=== PATIENT | female | born 1985 ===

== ENCOUNTER 2020-08-22 15:51 | Outpatient (REF) | payer OTHER, SELFPAY | END 2020-08-22 15:52 | disposition home or self-care (01) | LOC: HO.LAB 15:51 | PROVIDERS: Visit Provider Internal Medicine | DX: Z20.822 Contact with and (suspected) exposure to COVID-19 (principal) | CPT/HCPCS: 36415; C9803; U0003 ==

== ENCOUNTER 2020-12-21 07:58 | Outpatient (REF) | payer OTHER, SELFPAY ==
[2020-12-21 11:09] LABS: TSH reflex Free T4 1.13 uIU/mL (0.32-4.0)
[2020-12-26 02:36] LABS: HPV mRNA E6/E7 rflx Not Detected (Not Detected)
== END 2020-12-21 07:59 | disposition home or self-care (01) ==
LOC: HO.LAB 07:58
PROVIDERS: PCP Internal Medicine; Visit Provider Obstetrics & Gynecology
DX: Z01.411 Encounter for gynecological examination (general) (routine) with abnormal findings (principal); Z11.51 Encounter for screening for human papillomavirus (HPV); N93.9 Abnormal uterine and vaginal bleeding, unspecified
CPT/HCPCS: 36415; 84443; 87624; 88142

== ENCOUNTER 2021-01-07 12:50 | Outpatient (REF) | payer OTHER, SELFPAY ==
--- NOTE | ~2021-01-07 | US_ITS ---
EXAMINATION: PELVIC ULTRASOUND CLINICAL INFORMATION: Abnormal bleeding COMPARISON: None TECHNIQUE: Transabdominal and transvaginal pelvic ultrasound was performed. Transvaginal exam was performed for better visualization of the uterus and ovaries. FINDINGS: The uterus is anteverted and measures 8.8 x 3.5 x 3.8 cm in dimension. No focal uterine lesion is seen. Endometrial thickness is normal measuring 0.8 cm. There are nabothian cysts in the cervix. The ovaries are normal-appearing. The right ovary measures 2.4 x 1.6 x 1.4 cm. The left ovary measures 2.2 x 1.6 x 1.4 cm. There is trace fluid in the pelvis. US/US pelvic and transvaginal IMPRESSION: Unremarkable exam.
== END 2021-01-07 12:51 | disposition home or self-care (01) ==
LOC: HO.US 12:50
PROVIDERS: PCP Internal Medicine; Visit Provider Obstetrics & Gynecology
DX: N93.9 Abnormal uterine and vaginal bleeding, unspecified (principal)
CPT/HCPCS: 76830; 76856

== ENCOUNTER → 2021-01-09 10:41 | Outpatient (BNVA) | payer OTHER, SELFPAY | PROVIDERS: PCP Internal Medicine; Visit Provider Obstetrics & Gynecology ==

== ENCOUNTER 2021-12-23 10:14 | Outpatient (REF) | payer OTHER, SELFPAY ==
[2021-12-23 16:21] LABS: CT PCR NOT DETECTED (Not Detect.); NG PCR NOT DETECTED (Not Detect.)
[2021-12-24 10:54] LABS: BV Int Neg Control Negative (Negative); BV Int Pos Control Positive (Positive)
== END 2021-12-23 10:15 | disposition home or self-care (01) ==
LOC: HO.LAB 10:14
PROVIDERS: PCP Internal Medicine; Visit Provider Advanced Practice Midwife
DX: Z01.411 Encounter for gynecological examination (general) (routine) with abnormal findings (principal); N93.0 Postcoital and contact bleeding; Z20.2 Contact with and (suspected) exposure to infections with a predominantly sexual mode of transmission
CPT/HCPCS: 87480; 87491; 87510; 87591; 87660

== ENCOUNTER → 2022-01-07 11:08 | Outpatient (BNVA) | payer OTHER, SELFPAY | PROVIDERS: PCP Internal Medicine; Visit Provider Obstetrics & Gynecology | DX: Z30.09 Encounter for other general counseling and advice on contraception (principal) ==

== ENCOUNTER 2022-01-24 07:26 | Day surgery (SDC) | payer OTHER, SELFPAY ==
[2022-01-15 20:07] VITALS: BMI 38.7
--- NOTE | 2022-01-22 14:09 | HO.ANESPROP2 ---
Documented by User: Emi Dumas NP 01/22/22 14:09 HPI - Anesthesia Eval Consult details Narrative: 36yo F for Tubal Ligation Laparoscopic using bipolar cautery,poss bilateral salpingectomy PMFSH Active Problems Active Problems: All Active Problems (Updated 01/07/22 @ 11:33 by Gavin Hernadez MD) Sterilization (Acute) Past Medical History Medical History Obesity (BMI 35.0-39.9 without comorbidity) Family History Family History Father Heart attack Surgical History Surgical History (Updated 01/24/22 @ 07:53 by Nena Hall, RN) Hx of wisdom tooth extraction No pertinent past surgical history Social History Social History Alcohol intake: current Alcohol intake frequency: a few times a month Patient Tobacco Use Status: Never used Tobacco Use of substances other than those prescribed or required for medical reasons: No Are you DNR?: No Advance Directives: No Advance Directives Information Provided: No Advance Directives on File: No Recently lost weight without trying: No Nutrition Risks: No Nutritional Risk Patient : No Current occupational status: employed 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 Sexual orientation: Straight/Heterosexual Gender identity: Female Meds Allergies Allergy/AdvReac Type Severity Reaction Status Date / Time No Known Allergies Allergy Verified 01/07/22 11:14 Exam Exam Date and Time: January 22, 2022 1409 Height,Weight and Vital Signs: Height 5 ft 5 in Weight 105.687 kg Assessment and Plan Assessment Anesthesia Assessment: Chart Reviewed Documented by User: Lupis Coto MD 01/24/22 08:07 [facility] Past Medical History Medical History Obesity (BMI 35.0-39.9 without comorbidity) Family History Family History Father Heart attack Family history of problems with anesthesia: No Surgical History Surgical History (Updated 01/24/22 @ 07:53 by Nena Hall RN) Hx of wisdom tooth extraction No pertinent past surgical history History of Problems with Anesthesia: No Social History Social History Alcohol intake: current Alcohol intake frequency: a few times a month Patient Tobacco Use Status: Never used Tobacco Use of substances other than those prescribed or required for medical reasons: No Are you DNR?: No Advance Directives: No Advance Directives Information Provided: No Advance Directives on File: No Recently lost weight without trying: No Nutrition Risks: No Nutritional Risk Patient : No Current occupational status: employed 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 Sexual orientation: Straight/Heterosexual Gender identity: Female Meds Allergies Allergy/AdvReac Type Severity Reaction Status Date / Time No Known Allergies Allergy Verified 01/07/22 11:14 Exam Airway Mallampati Class: II (Missing couple in back nothing loose) TM Dist: >3cm Neck ROM: Full Heart: rrr Lungs: cta Assessment and Plan Assessment Anesthesia Assessment: Anesthesia Plan Discussed and Chart Reviewed Final Anesthetic Review Family History of Problems with Anesthesia: No History of Problems with Anesthesia: No NPO: Yes ASA Class: II Final Preanesthetic Review: No Changes in Pt Med Stat, Meds/Allgs Chart Reviewed and Consent Obtained/Reviewed Patient Risk: Intermediate Procedure Risk: Intermediate Anesthetic Plan Anesthetic Plan: GA Disposition: Standard PACU
[2022-01-24] VITALS (9 sets, daily range): BP systolic 117–154; BP diastolic 45–83; PULSE 75–103; RESP 18–20; TEMP 36.3–36.9; O2SAT 97–100
[2022-01-24 07:55] LABS: UPreg QC Valid YES; Urine Pregnancy NEGATIVE (NEGATIVE)
[2022-01-24] MEDS: Acetaminophen 325 MG TABLET 650 MG PO (08:01)
[2022-01-24] MEDS: Lactated Ringers 1,000 ML 100 ML IVCONT (08:01)
--- NOTE | 2022-01-24 09:27 | MHC.SHP ---
Pre-Procedural Eval Section A Date of Service: 01/24/22 The patient is an INPATIENT: No Changes since office visit: No Cold of Flu in the past 2 weeks, No New Medical Problems, No Changes in Medication and No Patient answered all questions The History & Physical has been completed within 30 days and I have reviewed it.: Yes Section B Chief Complaint: Encounter for sterilization Allergies: Allergies Allergy/AdvReac Type Severity Reaction Status Date / Time No Known Allergies Allergy Verified 01/07/22 11:14 Plan Diagnosis/Plan: Unchanged I have reviewed the history and physical and performed a pertinent physical examination on my patient. No changes have occurred unless specified.
--- NOTE | 2022-01-24 11:20 | PM.OP ---
Brief Operative Note Date of Service: 01/24/22 Pre-op diagnosis: Completed family requesting permanent sterilization Post-op diagnosis: same Procedure: Laparoscopic bliateral salpingectomy Surgeon: Gavin Hernadez MD Anesthesia: GETA Was an Mortgage Servicing Specialist used for this Procedure?: No Estimated blood loss (mL): 0 Pathology: other (Right & left fallopian tubes) Condition: stable Disposition: PACU
--- NOTE | 2022-01-24 11:20 | P.OP_ITS ---
Operative Note Operative Note Date of Service: 01/24/22 Narrative: PREOPERATIVE DIAGNOSIS:?Completed family requesting?permanent sterilization POSTOPERATIVE DIAGNOSIS:?Completed family requesting?permanent sterilization QBL: Minimal Anesthesia: GETA SURGEON:? Gavin Hernadez MD?? Shoe Worker: Complications: None Pathology: Right and left Fallopian tubes? DESCRIPTION OF PROCEDURE:?The patient was taken to the OR where general anesthesia was easily obtained. The patient was then prepped and draped in a sterile fashion and placed in dorsal lithotomy position. A speculum was introduced into the patient?s vagina for cervical visualization. Once the cervix was visualized, a single-toothed tenaculum was applied to the upper lip of the cervix, and a Humi manipulator was introduced into the patient?s cervix. The single tooth tenaculum was then removed and hemostasis was assured?using pressur e. a Claudio catheter?was inserted and clear urine started draining. Gloves were changed to clean ones. Attention was then drawn to the abdomen where a 10 mm longitudinal incision was done intra umbilical and carried down all the way to the fascia, which was tented?up using 2 Jessica clamps and was nicked in the midline and then extended on both end of the incision?, them using 2 pick?ups the peritoneum?was entered with Metzenbaum scissors and under direct visualization, a 10 mm Andrea trocar was introduced into the patient?s abdomen. Once intraperitoneal placement was confirmed with direct visualization, pneumoperitoneum was started & was easily obtained.Then, two fingerbreadths above the pubic symphysis and towards the?right lower quadrant, under direct visualization, a 5 mm trocar was then introduced into the patient?s abdomen. and a 3rd one on the left?lower quadrant was placed?in a similar manner. The patient was placed in Trendelenburg position, Inspection revealed normal pelvic str uctures & bilateral ovaries and fallopian tubes. Attention was then drawn to the left fallopian tube. The IP ligament was identified and fallopian tube was then grasped by the fimbria and incised from the mesosalpinx using ligasure device, using cautery for hemostasis and cutting afterwards a bite at a time all the way to the cornual end of the left tube. The same was done?on the?right fallopian t ube. Good hemostasis was noted from both fallopian tube sites and the operative site. Specimen were then removed from the patient?s abdomen. Copious irrigation was done. Once good hemostasis was noted from the patient?s abdomen, pneumoperitoneum was deflated and all trocars were removed. Infraumbilical fascia was closed with 0 Vicryl and interrupted suture. The skin was closed with 4-0 Vicryl. The Right and left?lower quadrant ports were closed with 0 Vicryl. Bupivicaine 0.25 10 cc were injected subcuticularly in the 3 incisions. Then speculum was put back in the vagina inspection revealed?hemostasis at the site of the tenaculum, the?humi manipulator was removed? and Claudio was draining clear urine was taken out too. Sponge, lap and needle counts were correct x2. The patient was taken to the recovery room in stable condition.
[2022-01-24] MEDS: oxyCODONE HCl Immed Release 5 MG TABLET PO (12:07)
== END 2022-01-24 14:25 | disposition home or self-care (01) ==
PROVIDERS: Nurse Practitioner; PCP Internal Medicine; Visit Provider Obstetrics & Gynecology
PROC: (CPT 58670; principal; 2022-01-24 09:40)
DX: Z30.2 Encounter for sterilization (principal); E66.9 Obesity, unspecified; Z68.38 Body mass index [BMI] 38.0-38.9, adult
CPT/HCPCS: 58661; 81025; 88302; J0330; J1100; J2250; J2405; J3010

== ENCOUNTER 2022-10-07 08:52 | Outpatient (REF) | payer OTHER, SELFPAY ==
[2022-10-07 12:27] LABS: Cholesterol 161 mg/dL; Glucose Fasting 101 mg/dL (60-99); HDL Cholesterol 40 mg/dL; LDL Cholesterol Calculated 89 mg/dl; Triglycerides 162 mg/dL
[2022-10-07 12:46] LABS: Vitamin D 25-OH Total 24.7 ng/mL (>30)
== END 2022-10-07 08:53 | disposition home or self-care (01) ==
LOC: HO.HMGCLDS 08:52
PROVIDERS: PCP Internal Medicine; Visit Provider Internal Medicine
DX: Z00.01 Encounter for general adult medical examination with abnormal findings (principal); E66.01 Morbid (severe) obesity due to excess calories; Z13.1 Encounter for screening for diabetes mellitus; Z68.41 Body mass index [BMI] 40.0-44.9, adult
CPT/HCPCS: 36415; 80061; 82306; 82947

== ENCOUNTER → 2022-12-25 09:19 | Outpatient (BNVA) | payer OTHER, SELFPAY | PROVIDERS: PCP Internal Medicine; Visit Provider Advanced Practice Midwife ==

== ENCOUNTER 2023-02-02 11:18 | Outpatient (REF) | payer OTHER, SELFPAY | END 2023-02-02 11:19 | disposition home or self-care (01) | LOC: HO.LNP 11:18 | PROVIDERS: PCP Internal Medicine; Visit Provider Advanced Practice Midwife | DX: Z13.89 Encounter for screening for other disorder (principal) ==

== ENCOUNTER 2023-02-02 12:39 | Outpatient (REF) | payer OTHER, SELFPAY | END 2023-02-02 12:40 | disposition home or self-care (01) | LOC: HO.LAB 12:39 | PROVIDERS: PCP Internal Medicine; Visit Provider Advanced Practice Midwife | DX: Z11.4 Encounter for screening for human immunodeficiency virus [HIV] (principal); Z20.2 Contact with and (suspected) exposure to infections with a predominantly sexual mode of transmission | CPT/HCPCS: 0353U; 86780; 86803; 87340; 87389; 87480; 87510; 87660 ==

== ENCOUNTER 2023-07-21 10:05 | Outpatient (AMB) | payer OTHER, SELFPAY ==
[2023-07-21 11:47] VITALS: BP 128/78; PULSE 97; TEMP 36.4; O2SAT 100
--- NOTE | 2023-07-21 11:47 | AM.OFFWIN_ITS ---
Intake Vital Signs 07/21/23 11:47 Height 5 ft 5 in BP 128/78 Blood Pressure Location Lt brachial Position Sitting Pulse 97 Pulse Source Pulse Oximeter Temp 97.6 F Temp Source Temporal Artery Scan Pulse Oximetry (%) 100 Oxygen Delivery Method Room Air Intake Visit Reasons: EST/right ear blockage/sore throat [phone] Intake Note: Pt is here c/o right ear blockage and sore throat. Patient Tobacco Use Status: Never used Tobacco Allergies No Known Allergies Allergy (Verified 07/21/23 11:47) Do you need a note to return to daycare/school/sports/work: Yes HPI HPI Comments History of Present Illness Details This is a 38 year old female with no stated past medical history presenting for evaluation of a blockage in her right ear that has been present over the past 1 week that she describes as an occasional a pressure-like sensation as well as a sore throat which started this morning. Patient denies having any fevers, chills, cough or difficulty hearing. She has not taken any medication for treatment of her symptoms. 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 Sexual orientation: Straight/Heterosexual Gender identity: Female Cognitive needs: No Hearing needs: No Vision needs: Yes Female Reproductive History Menstrual Age of Menarche: 25 Review of Systems Const All systems reviewed & are unremarkable except as noted in HPI and below Denies chills and Denies fever(s) ENT Reports as per HPI, Denies sinus pain, Denies sinus pressure and Reports sore throat Card Reports no additional complaints Resp Reports no additional complaints Endo Reports no additional complaints Physical Exam Vital Signs: Last Vital Signs Temp 97.6 F 07/21/23 11:47 Pulse 97 07/21/23 11:47 BP 128/78 07/21/23 11:47 Pulse Ox 100 07/21/23 11:47 Oxygen Delivery Method Room Air 07/21/23 11:47 Const General: cooperative, healthy appearing, comfortable and no acute distress Nutritional Appearance: well nourished Orientation/consciousness: patient oriented x3 Limitations: no limitations HEENT Head: Yes normal to inspection Ears: hearing grossly normal bilaterally, external ears normal and TM's abnormal bilaterally (bulging bilaterally without erythema; no fluid level bilaterally, no FB) General nose exam: Normal external nose present Face and sinus: Yes normal facial exam and Yes sinuses nontender Mouth: Normal oral and palatal mucosa present Teeth and gingiva: dentition normal Throat: Yes postnasal drainage Eyes General: appearance normal, both eyes and all related structures Alignment and Position: alignment normal Eyelids: Yes eyelids normal Conjunctivae: conjunctivae normal Sclerae: sclerae normal Corneas: corneas normal Pupils: Equal, round and reactive pupils present EOM: EOMs intact bilaterally Neck Lymphatic: no lymphadenopathy noted Skin General skin exam: no rashes or lesions noted Neuro General: patient oriented x3 Cranial nerves: Yes Equal, round and reactive pupils present Psych Appearance: grossly normal Mental Status: mental status grossly normal Insight: Good insight present (Psych) Judgement: Good judgement present (Psych) Assessment & Plan Assessment & Plan (1) Pharyngitis: Code(s): J02.9 - Acute pharyngitis, unspecified Plan: Diphenhydramine 25mg qHS for post.nasal drip and Ibuprofen as needed for pharyngitis. (2) Pressure-related ear pain: Code(s): T70.0XXA - Otitic barotrauma, initial encounter Plan: Fluticasone 1 spray into each nostril daily for 10-14 days. Rx. sent to pharmacy. Medications: New fluticasone propionate 50 mcg/actuation administer into each nostril 1 spray intranasal DAILY 16 grams 1RF Coding Level of Care Code Est Pt Level 3 (27310) Diagnoses Pharyngitis J02.9 Pressure-related ear pain T70.0XXA Time Spent (min) 20
== END 2023-07-21 12:42 | disposition home or self-care (01) ==
PROVIDERS: PCP Internal Medicine; Visit Provider Physician Assistant
DX: J02.9 Acute pharyngitis, unspecified (principal); T70.0XXA Otitic barotrauma, initial encounter
CPT/HCPCS: 99213

== ENCOUNTER 2023-10-19 08:01 | Outpatient (AMB) | payer OTHER, SELFPAY ==
[2023-10-19 08:05] VITALS: BP 120/80; PULSE 92; O2SAT 98; BMI 40.4
--- NOTE | 2023-10-19 08:05 | A.OFFPC_ITS ---
Vital Signs 10/19/23 08:05 Height 5 ft 5 in Weight 243 lb BMI 40.4 BP 120/80 Blood Pressure Location Rt brachial Position Sitting Pulse 92 Pulse Source Pulse Oximeter Pulse Oximetry (%) 98 Oxygen Delivery Method Room Air Intake Visit Reasons: Annual PE Intake Note: Pt is here today for her PE: Last 12/21/20 Is last menstrual period known: Yes Last menstrual period: 09/06/23 Allergies No Known Allergies Allergy (Verified 10/19/23 08:17) Medication List - Last Reconciled 10/19/23 by Steph Zapata MD fluticasone propionate 50 mcg/actuation 1 spray intranasal DAILY multivitamin 1 tab PO DAILY Tobacco use date assessed: 10/19/23 Dental Screening Dental Screen Date: 10/19/23 Did you have a dental visit in the last 12 months?: Yes Did you have a dental problem in the last 6 months where you did not have access to dental care?: No Was dental information given to patient?: Patient has dentist HPI Annual PE HPI Details 38-year-old lady here today for her phys ical exam. She is up-to-date with her cervical cancer screening, last done by Dr. Hernadez in 2020 with negative findings had bilateral salpingectomy for control. She has allergic rhinitis currently uses fluticasone nasal spray as needed. Has been having intermittent episodes of pressure in her right ear accompanied by nasal congestion, unrelieved by taking Zyrtec or Claritin or using Flonase denies any accompanying headache, no sore throat or postnasal drip. She goes to [facility] eye care for her routine eye exam and is up-to-date with all her vaccinations [facility] Medical History (Updated 10/19/23 @ 08:21 by Steph Zapata MD) Morbid obesity with BMI of 40.0-44.9, adult Surgical History (Updated 10/19/23 @ 08:21 by Steph Zapata MD) H/O bilateral salpingectomy Hx of tubal ligation Hx of wisdom tooth extraction Family History Father Acute myocardial infarction, Onset Age: 45 HTN (hypertension) Social History Housing: House Alcohol intake: current Alcohol intake frequency: a few times a month Patient Tobacco Use Status: Never used Tobacco e-Cigarette/Vaping Use: Never Used Current occupational status: employed 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 1. Little interest or pleasure in doing things: not at all 2. Feeling down, depressed, or hopeless: not at all 3. Trouble falling or staying asleep, or sleeping too much: not at all 4. Feeling tired or having little energy: not at all 5. Poor appetite or overeating: not at all 6. Feeling bad about yourself - or that you are a failure or have let yourself or your family down: not at all 7. Trouble concentrating on things, such as reading the newspaper or watching television: not at all 8. Moving or speaking so slowly that other people could have noticed. Or the opposite - being so fidgety or restless that you have been moving around a lot more than usual: not at all 9. Thoughts that you would be better off or of hurting yourself in some way: not at all Total score: 0 Depression Screening Interpretation: Negative Depression Screening Done: Yes 10287 - PHQ-9 Billing: Yes Source: Developed by Drs. Artem Dominguez, Kaley Peter, Zander Morgan and colleagues, with an educational kindra from [employer]. Thrive Questionnaire Date Thrive assessed: 10/19/23 I am a: Patient What is your living situation today?: I have a steady place to live Within the past 12 months, did the food you bought not last and you didn't have the money to get more?: Never true Within the past 12 months, did you worry whether your food would run out before you got money to buy more?: Never true Do you have trouble paying for medicines?: No Do you have trouble getting transportation to medical appointments?: No Do you have trouble paying your heating and electricity bill?: No Do you have trouble taking care of your child, family member or friend?: No Do you have trouble with day-to-day activities such as bathing, preparing meals, shopping, managing finances, etc.?: No Are you currently unemployed and looking for a job?: No Are you interested in more education?: No THRIVE Score: 0 AUDIT C Alcohol Use Questionnaire (AUDIT-C) 1. How often do you have a drink containing alcohol?: Monthly or less 2. How many drinks containing alcohol do you have on a typical day when you are drinking?: 3 or 4 3. How often do you have six or more drinks on one occasion?: Never Total Score: 2 Score Reviewed/Action Taken: Yes KHRIS-7 AMB Questionnaire KHRIS-7 Date KHRIS - 7 assessed: 10/19/23 Feeling nervous, anxious, or on edge: 0 = Not at all Not being able to stop or control worryin = Not at all Worrying too much about different things: 1 = Several days Trouble relaxin = Not at all Being so restless that it is hard to sit still: 0 = Not at all Becoming easily annoyed or irritable: 0 = Not at all Feeling afraid as if something awful might happen: 0 = Not at all Total KHRIS-7 score (0-4 normal; 5-9 mild; 10-14 moderate; 15-21 severe): 1 Source: Developed by Drs. Artem Dominguez, Kaley Peter, Zander Morgan and colleagues, with an educational kindra from [employer]. KHRIS-7 Assessment Billing KHRIS-7 Assessment Tool: KHRIS-7 Assessment 82459 Review of Systems Const Denies body aches, Denies fatigue, Denies fever(s), Denies headache(s) and Denies weakness Eyes Details: goes to [facility] eye care- has myopia Denies change in vision ENT Reports as per HPI, Denies dizziness, Denies otalgia, Denies headache(s), Denies nasal discharge and Denies sore throat Card Denies chest pain, Denies lightheadedness, Denies palpitations and Denies dyspnea Resp Denies chest congestion, Denies cough, Denies dyspnea and Denies wheezing GI Denies abdominal pain, Denies change in bowel habits and Denies heartburn Denies hematuria, Denies urinary frequency, Denies dysuria and Denies urinary urgency Musc Reports no additional complaints Skin/Breast Denies breast pain, Denies breast mass, Denies lesions and Denies rash Neuro Denies dizziness, Denies headache(s) and Denies weakness Psych Reports no additional complaints Endo Denies fatigue, Denies polydipsia, Denies polyuria and Denies palpitations Ruslan/Lymph Denies easy bleeding and Denies easy bruising Aller/Immun Reports seasonal rhinorrhea and Denies wheezing Physical exam (Primary Care) Vital Signs: Last Vital Signs Pulse 92 10/19/23 08:05 BP 120/80 10/19/23 08:05 Pulse Ox 98 10/19/23 08:05 Oxygen Delivery Method Room Air 10/19/23 08:05 BMI result Body Mass Index 40.4 BMI Assessment/Plan discussion: High BMI High, discussed plan: lifestyle, weight reduction, dietary and physical activity Tobacco/Smoking Status: Tobacco use Status Tobacco use date assessed 10/19/23 10/19/23 08:15 Patient Tobacco Use Status Never used Tobacco 10/19/23 08:07 e-Cigarette/Vaping Use Never Used 10/19/23 08:07 Depression Screening Interpretation: Negative Thrive Assessment: Date of Thrive Assessment Date Thrive assessed 10/07/22 10/19/23 08:07 Const General: comfortable, no acute distress and alert Nutritional Appearance: obese morbidly obese Orientation/consciousness: patient oriented x3 HENMT Head: Yes normocephalic and Yes atraumatic Ears: hearing grossly normal bilaterally, external ears normal, TM's normal bilaterally and EAC's normal General nose exam: Normal external nose present and No nasal discharge present Face and sinus: Yes face symmetric and No sinus tenderness Mouth: Normal oral and palatal mucosa present, oropharynx normal and moist mucous membranes Eyes General: appearance normal, both eyes and all related structures Conjunctivae: conjunctivae normal Sclerae: sclerae normal Pupils: Equal, round and reactive pupils present EOM: EOMs intact bilaterally Neck Neck: Yes full ROM, Yes no lymphadenopathy and Yes supple Thyroid: Thyroid normal Chest Chest palpation & inspection: normal inspection of the chest and normal palpation of entire chest wall Breast/axilla inspection: normal inspection of the breasts Breast/axilla palpation: normal palpation of the breasts Resp Effort & Inspection: normal respiratory effort and able to speak in complete sentences Auscultation: clear to auscultation bilaterally Cardio Rate: regular rate Rhythm: regular rhythm Heart sounds: S1 normal heart sound present and S2 normal heart sound present GI Inspection: Yes obesity Palpation (GI): Soft to palpation, nontender, no guarding and no masses Auscultation: normal bowel sounds General: Yes no CVA tenderness and Yes deferred (Has appointment with her OBGYN in December 2023 for routine pelvic and Pap smear) Back/Spine/Pelvis Back: no CVA tenderness Skin General skin exam: no rashes or lesions noted Rashes: no rashes Hair: normal Nails: normal Neuro General: patient oriented x3, gait normal, tone normal, Normal light touch and pain sensation and no focal motor deficits Cranial nerves: Yes Equal, round and reactive pupils present Cognition (Neuro): normal cognition Motor exam (neuro): 5/5 motor strength present throughout Extrem General: Yes full ROM, Yes no joint enlargement, Yes no clubbing, cyanosis or edema, Yes no calf tenderness and Yes normal gait Psych Appearance: grossly normal and well kempt Mental Status: mental status grossly normal Speech and movement: Normal speech and movement present Affect: normal affect Attitude: cooperative Thought process: Normal thought process present Thought content: Normal thought content present Assessment and Plan Assessment & Plan (1) Annual visit for general adult medical examination with abnormal findings: Code(s): Z00.01 - Encounter for general adult medical examination with abnormal findings Plan: Will check appropriate labs. Continue ready dental visit every 6 months and regular eye exams, at least every 2 years, sees [facility]. Take adequate calcium in diet and vitamin-D 3 at 2000 IU per cap once a day, in addition to weight-bearing exercises to help maintain good muscle tone and weight control. Instructed to do self-breast exam, and recommended to get yearly mammogram, starting at age 40. She sees [facility] for her routine Pap and pelvic exam, has an appointment already scheduled for December 2023 up-to-date with all her vaccinations (2) History of vitamin D deficiency: Code(s): Z86.39 - Personal history of other endocrine, nutritional and metabolic disease Plan: Will check vitamin-D (3) Morbid obesity with BMI of 40.0-44.9, adult: Code(s): E66.01 - Morbid (severe) obesity due to excess calories; Z68.41 - Body mass index [BMI] 40.0-44.9, adult Plan: Recommended focusing on improving your health instead of dieting. : Eat Mediterranean diet, limit foods high in fat, sugar, and calories, eat slowly, pay attention to portion sizes, plan your meals ahead of time, start regular physical activity 150 minutes of moderate intensity exercise or 90 minutes/week of vigorous exercise , stay well-hydrated, she also does yoga Orders: Orders Glucose Fasting Today E66.01 - Morbid (severe) obesity due to excess calories, Z00.01 - Encounter for general adult medical examination with abnormal findings, Z13.1 - Encounter for screening for diabetes mellitus, Z13.220 - Encounter for screening for lipoid disorders, Z68.41 - Body mass index [BMI] 40.0-44.9, adult, Z86.39 - Personal history of other endocrine, nutritional and metabolic disease Hemoglobin and Hematocrit Today E66.01 - Morbid (severe) obesity due to excess calories, Z00.01 - Encounter for general adult medical examination with abnormal findings, Z13.1 - Encounter for screening for diabetes mellitus, Z13.220 - Encounter for screening for lipoid disorders, Z68.41 - Body mass index [BMI] 40.0-44.9, adult, Z86.39 - Personal history of other endocrine, nutritional and metabolic disease Lipid Panel Today E66.01 - Morbid (severe) obesity due to excess calories, Z00.01 - Encounter for general adult medical examination with abnormal findings, Z13.1 - Encounter for screening for diabetes mellitus, Z13.220 - Encounter for screening for lipoid disorders, Z68.41 - Body mass index [BMI] 40.0-44.9, adult, Z86.39 - Personal history of other endocrine, nutritional and metabolic disease Vitamin D 25-OH Total Today E66.01 - Morbid (severe) obesity due to excess calories, Z00.01 - Encounter for general adult medical examination with abnormal findings, Z13.1 - Encounter for screening for diabetes mellitus, Z13.220 - Encounter for screening for lipoid disorders, Z68.41 - Body mass index [BMI] 40.0-44.9, adult, Z86.39 - Personal history of other endocrine, nutritional and metabolic disease Coding Level of Care Code Est Pt Prev Care 18-39y(05330) Diagnoses Annual visit for general adult medical examination with abnormal findings Z00.01 History of vitamin D deficiency Z86.39 Morbid obesity with BMI of 40.0-44.9, adult E66.01; Z68.41 Additional Codes KHRIS-7 Assessment Billing - KHRIS-7 Assessment Tool: KHRIS-7 Assessment [id number] ([id number])
== END 2023-10-19 08:36 | disposition home or self-care (01) ==
PROVIDERS: Visit Provider Internal Medicine
DX: Z00.01 Encounter for general adult medical examination with abnormal findings (principal); Z86.39 Personal history of other endocrine, nutritional and metabolic disease; E66.01 Morbid (severe) obesity due to excess calories; Z68.41 Body mass index [BMI] 40.0-44.9, adult
CPT/HCPCS: 99395

== ENCOUNTER 2023-10-19 08:37 | Outpatient (REF) | payer OTHER, SELFPAY ==
[2023-10-19 11:25] LABS: Hematocrit 39.7 % (37.0-47.0); Hemoglobin 12.8 g/dl (12.0-16.0)
[2023-10-19 11:46] LABS: Cholesterol 155 mg/dL (<200); Glucose Fasting 93 mg/dL (60-99); HDL Cholesterol 39 mg/dL (>40); LDL Cholesterol Calculated 76 mg/dL (<100); Triglycerides 202 mg/dL (<150)
[2023-10-19 12:04] LABS: Vitamin D 25-OH Total 60.4 ng/mL (>30)
== END 2023-10-19 08:38 | disposition home or self-care (01) ==
LOC: HO.HMGCLDS 08:37
PROVIDERS: PCP Internal Medicine; Visit Provider Internal Medicine
DX: Z00.01 Encounter for general adult medical examination with abnormal findings (principal); Z13.220 Encounter for screening for lipoid disorders; Z13.1 Encounter for screening for diabetes mellitus; E66.01 Morbid (severe) obesity due to excess calories; Z68.41 Body mass index [BMI] 40.0-44.9, adult; Z86.39 Personal history of other endocrine, nutritional and metabolic disease
CPT/HCPCS: 36415; 80061; 82306; 82947; 85014; 85018

== ENCOUNTER 2023-12-29 08:20 | Outpatient (REF) | payer OTHER, SELFPAY ==
[2023-12-30 04:46] LABS: CT PCR NOT DETECTED (Not Detect.); NG PCR NOT DETECTED (Not Detect.)
[2023-12-30 11:09] LABS: Bacterial Vaginosis PCR NEGATIVE (Negative); Candida Group PCR NOT DETECTED (Not Detect); Candida glab krusei PCR NOT DETECTED (Not Detect); Trichomonas vaginalis PCR NOT DETECTED (Not Detect)
[2024-01-07 07:59] LABS: HPV mRNA E6/E7 rflx Not Detected (Not Detected)
== END 2023-12-29 08:21 | disposition home or self-care (01) ==
LOC: HO.LAB 08:20
PROVIDERS: Visit Provider Advanced Practice Midwife
DX: Z01.419 Encounter for gynecological examination (general) (routine) without abnormal findings (principal); Z11.51 Encounter for screening for human papillomavirus (HPV); Z20.2 Contact with and (suspected) exposure to infections with a predominantly sexual mode of transmission
CPT/HCPCS: 0352U; 0353U; 87624; 88142

== ENCOUNTER 2023-12-29 08:20 | Outpatient (AMB) | payer OTHER, SELFPAY ==
[2023-12-29 08:39] VITALS: BP 130/70; BMI 39.9
--- NOTE | 2023-12-29 08:39 | A.OFFVIS_ITS ---
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 Doing well with no concerns: Menses crampy in heavy. Regular monthly menses, heavy menstrual bleeding 4 out of 7 days. She reports always having menstrual periods that were heavy, now crampy year since her tubal ligation and being off OCPs. Currently is sexually active. She denies vaginal itching and irritation. STI screening offered; she accepts. She tries to eat healthy and stays active with exercise. Denies family history of breast or ovarian. Family history of colon cancer- mother. Last pap smear 2020, negative. CBC 12.8- 10/19/2023. [facility] Medical History (Updated 12/29/23 @ 09:18 by Letha Maldonado CNM) Heavy menses Morbid obesity with BMI of 40.0-44.9, adult Surgical History H/O bilateral salpingectomy Hx of tubal ligation Hx of wisdom tooth extraction Family History (Updated 12/29/23 @ 09:17 by Eliseo Colon CMA) Father Acute myocardial infarction, Onset Age: 45 HTN (hypertension) Mother Colon cancer Social History Housing: House Alcohol intake: current Alcohol intake frequency: a few times a month Patient Tobacco Use Status: Never used Tobacco e-Cigarette/Vaping Use: Never Used Current occupational status: employed 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 Sexual orientation: Straight/Heterosexual Gender identity: Female Cognitive needs: No Hearing needs: No Vision needs: Yes Female Reproductive History Menstrual Age of Menarche: 15 Duration of menses: 6-7 days Date of last menstrual period: 12/17/23 control method: permanent sterilization Total pregnancies: 2 Full term: 1 Date of last pap smear: 12/24/20 (negative,2017 wnl) Review of Systems Const All systems reviewed & are unremarkable except as noted in HPI and below Reports as per HPI Eyes Reports no additional complaints ENT Reports no additional complaints Card Reports no additional complaints Resp Reports no additional complaints GI Reports as per HPI and Reports no additional complaints Reports as per HPI Musc Reports no additional complaints Skin/Breast Reports as per HPI Neuro Reports no additional complaints Psych Reports no additional complaints Endo Reports no additional complaints Ruslan/Lymph Reports no additional complaints Aller/Immun Reports no additional complaints Physical Exam Vital Signs: Last Vital Signs BP 130/70 12/29/23 08:39 BMI result Body Mass Index 39.9 Const General: cooperative, healthy appearing, no acute distress, well developed and alert Orientation/consciousness: patient oriented x3 HEENT Head: Yes normal to inspection Eyes General: appearance normal, both eyes and all related structures Neck Neck: Yes normal visual inspection Thyroid: Thyroid normal Chest Chest palpation & inspection: normal inspection of the chest and other (no puckering, dimpling, peau de orange, retraction, discharge, masses) Breast/axilla inspection: normal inspection of the breasts Breast/axilla palpation: normal palpation of the breasts Resp Effort & Inspection: normal respiratory effort GI Inspection: Yes normal to inspection Palpation (GI): Soft to palpation Rectal Exam - Female: deferred General: Yes bladder normal to palpation External Female Exam: normal external appearance and normal appearance of the urethra Speculum Exam - Vagina: normal appearance of the vagina, normal palpation and normal vaginal discharge Speculum Exam - Cervix: normal appearance of the cervix, normal palpation and Other cervical findings present (Bled with Pap) Bimanual exam- vagina & uterus: normal bimanual exam, normal palpation, uterine size normal, bladder normal to palpation, normal palpation and non-tender Bimanual Exam- Adnexa, other: no masses Skin General skin exam: no rashes or lesions noted Rashes: no rashes Neuro General: patient oriented x3 Cognition (Neuro): normal cognition Extrem General: Yes normal to inspection Psych Attitude: cooperative Thought process: Normal thought process present Assessment & Plan Assessment & Plan (1) Encounter for well woman exam with routine gynecological exam: Code(s): Z01.419 - Encounter for gynecological examination (general) (routine) without abnormal findings Category: Medical (2) Heavy menses: Code(s): N92.0 - Excessive and frequent menstruation with regular cycle Category: Medical Qualifiers: Menorrhagia type: with regular cycle Qualified Code(s): N92.0 - Exce ssive and frequent menstruation with regular cycle Plan Discussed: Current recommendations for pap smears per ASCCP guidelines. Breast awareness and periodic breast exams. Maintain a healthy lifestyle including a well balanced diet and routine exercise. Workup for heavy menstrual bleeding including a TSH, ultrasound, possible endometrial biopsy. Consider cycle control in the future. Patient verbalizes understanding and agrees to the plan of care. She was given opportunity to ask questions and all questions were answered to the best of my ability. 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 This note is constructed using voice recognition software. While every effort has been made to ensure accuracy, color drum worker errors may have been included. Orders: Orders US pelvic and transvaginal Today N92.0 - Excessive and frequent menstruation with regular cycle Thyroid Stimulating Hormone Today N92.0 - Excessive and frequent menstruation with regular cycle, N92.1 - Excessive and frequent menstruation with irregular cycle Coding Level of Care Code Est Pt Prev Care 18-39y(16395) Diagnoses Encounter for well woman exam with routine gynecological exam Z01.419 Menorrhagia with regular cycle N92.0 Menorrhagia type: with regular cycle
== END 2023-12-29 09:20 | disposition home or self-care (01) ==
PROVIDERS: Visit Provider Advanced Practice Midwife
DX: Z01.419 Encounter for gynecological examination (general) (routine) without abnormal findings (principal); N92.0 Excessive and frequent menstruation with regular cycle
CPT/HCPCS: 99395

== ENCOUNTER 2024-01-04 14:19 | Outpatient (REF) | payer OTHER, SELFPAY ==
--- NOTE | ~2024-01-04 | US_ITS ---
EXAMINATION: US PELVIS CLINICAL INFORMATION: Excessive and frequent menstruation LMP 12/17/2023 History of bilateral salpingectomy COMPARISON: Pelvic ultrasound 01/07/2021 TECHNIQUE: Ultrasound of the pelvis is performed using both transabdominal and transvaginal transducers along with Doppler. Transvaginal imaging is performed due to inadequate visualization transabdominally. FINDINGS: Uterus: The uterus is anteverted and measures 8.8 x 4.5 x 5.3 cm. No focal fibroid. The endometrial thickness is 0.9 cm The uterus is smooth in contour and has normal myometrial echogenicity. No visible fibroid. Adnexa: Both ovaries are visualized. There is normal color flow to the adnexa. There is no ovarian torsion. There is a small amount of free fluid within the cul-de-sac. Right ovary measures 3.0 x 1.6 x 1.9 cm. Volume 4.7 mL. The right ovary is normal in appearance. Left ovary measures 3.8 x 2.1 x 2.7 cm. Volume 11.3 mL. The left ovary is normal in appearance. US/US pelvic and transvaginal IMPRESSION: Normal uterus and ovaries.
[2024-01-04 17:04] LABS: Thyroid Stimulating Hormone 0.92 uIU/mL (0.32-4.0)
== END 2024-01-04 14:20 | disposition home or self-care (01) ==
LOC: HO.HMGCX 14:19
PROVIDERS: PCP Internal Medicine; Visit Provider Advanced Practice Midwife
DX: N92.0 Excessive and frequent menstruation with regular cycle (principal); N92.1 Excessive and frequent menstruation with irregular cycle
CPT/HCPCS: 36415; 76830; 76856; 84443

== ENCOUNTER 2024-03-02 14:56 | Outpatient (AMB) | payer OTHER, SELFPAY ==
--- NOTE | 2024-03-02 15:29 | A.OFFVIS_ITS ---
Intake Visit Reasons: Us follow up Electrotyper: Electrotyper Present Allergies No Known Allergies Allergy (Verified 03/02/24 15:29) Is last menstrual period known: Yes HPI Comments Details: Patient is here today for a follow up pelvic ultrasound due to history of heavier periods. She reports her cycles are on the heavier side most of her life, they are not prolonged or less than 24 days apart, occuring at regular intervals lasting 5-6 days. She uses srco-ycj-ceqtspz ibuprofen and a heating pad if needed for the 1st 1-2 days of the cycle due to cramping. History of tubal ligation. CBC and TSH are normal ranges. 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 Sexual orientation: Straight/Heterosexual Gender identity: Female Cognitive needs: No Hearing needs: No Vision needs: Yes Female Reproductive History Menstrual Age of Menarche: 15 Review of Systems Const All systems reviewed & are unremarkable except as noted in HPI and below Endo Reports no additional complaints Physical Exam Const General: cooperative, healthy appearing and no acute distress Psych Appearance: well kempt Attitude: cooperative Thought process: Normal thought process present Results Reviewed Results Reviewed: [facility] Adult Primary Care [facility] [place] [place] [address] Ultrasound Report Signed Patient: Adwoa Nelson MR#: [id number] : 1985 Acct:[id number] Age/Sex: 38 / F ADM Date: 01/04/24 Loc: HO.HMGCX Attending Dr: Letha Maldonado CNM Ordering Physician: Letha Maldonado CNM Date of Service: 01/04/24 Procedure(s): US pelvic and transvaginal Accession Number(s): [id number] cc: Steph Zapata MD; Letha Maldonado CNM~ EXAMINATION: US PELVIS CLINICAL INFORMATION: Excessive and frequent menstruation LMP 12/17/2023 History of bilateral salpingectomy COMPARISON: Pelvic ultrasound 01/07/2021 TECHNIQUE: Ultrasound of the pelvis is performed using both transabdominal and transvaginal transducers along with Doppler. Transvaginal imaging is performed due to inadequate visualization transabdominally. FINDINGS: Uterus: The uterus is anteverted and measures 8.8 x 4.5 x 5.3 cm. No focal fibroid. The endometrial thickness is 0.9 cm The uterus is smooth in contour and has normal myometrial echogenicity. No visible fibroid. Adnexa: Both ovaries are visualized. There is normal color flow to the adnexa. There is no ovarian torsion. There is a small amount of free fluid within the cul-de-sac. Right ovary measures 3.0 x 1.6 x 1.9 cm. Volume 4.7 mL. The right ovary is normal in appearance. Left ovary measures 3.8 x 2.1 x 2.7 cm. Volume 11.3 mL. The left ovary is normal in appearance. US/US pelvic and transvaginal IMPRESSION: Normal uterus and ovaries. Dictated By: Kate Jiang MD Signed By: <Electronically signed by Kate Jiang MD in OV> 01/18/24 1557 DD/ [id number] Assessment & Plan Assessment & Plan (1) Heavy menses: Code(s): N92.0 - Excessive and frequent menstruation with regular cycle Category: Medical Qualifiers: Menorrhagia type: with regular cycle Qualified Code(s): N92.0 - Excessive and frequent menstruation with regular cycle (2) Dysmenorrhea: Code(s): N94.6 - Dysmenorrhea, unspecified (3) Encounter to discuss test results: Code(s): Z71.2 - Person consulting for explanation of examination or test findings Plan Discussed: Ultrasound findings-unremarkable. Management dysmenorrhea including the use of fkxj-yhk-hqejzml products. When to call for concerns with heavy bleeding, irregular patterns, any prolonged bleeding episodes. She is not interested in control at this time and would rather like to monitor her cycles for now. Counseled regarding benefits of cycle control for quality of life. She was open to taking a Mirena IUD booklet for review. All of her questions and concerns were addressed to the best of my ability and shared decision making. She is agreeable to the plan of care, and agrees to call the office for sooner evaluation if she has any menstrual cycle concerns. Annual exam as scheduled follow up 2024. Insert voice recognition Coding Level of Care Code Est Pt Level 3 (08188) Diagnoses Menorrhagia with regular cycle N92.0 Menorrhagia type: with regular cycle Dysmenorrhea N94.6 Encounter to discuss test results Z71.2
== END 2024-03-02 16:05 | disposition home or self-care (01) ==
LOC: HO.HWS 14:56
PROVIDERS: PCP Internal Medicine; Visit Provider Advanced Practice Midwife
DX: N92.0 Excessive and frequent menstruation with regular cycle (principal); N94.6 Dysmenorrhea, unspecified; Z71.2 Person consulting for explanation of examination or test findings
CPT/HCPCS: 99213

== ENCOUNTER → 2024-03-02 14:56 | Outpatient (BNVA) | payer OTHER, SELFPAY | PROVIDERS: PCP Internal Medicine; Visit Provider Advanced Practice Midwife ==

== ENCOUNTER 2024-05-20 13:15 | Outpatient (AMB) | payer OTHER, SELFPAY ==
--- NOTE | 2024-05-20 13:23 | A.OFFVIS_ITS ---
Vital Signs 05/20/24 13:25 Height 5 ft 5 in BP 118/70 Intake Visit Reasons: BC consult Acid Tender: Acid Tender Present Allergies No Known Allergies Allergy (Verified 05/20/24 13:23) Is last menstrual period known: Yes Last menstrual period: 05/08/24 HPI Comments Details: Patient is here today for a follow up control. She has history of regular cycles lasting 7 days, with increased cramping without using NuvaRing, takes Adviil (3 tabs) to help with cramping. She stopped using the NuvaRing in December to see what happened with her cycles. She is not interested in the Mirena IUD at this time. History of tubal ligation. She denies any contraindications to control such as: migraines with aura, history of DVT or pulmonary emboli, high blood pressure, liver disease, thrombolic disorders, Lupus, +CONNIE, breast cancer, or smoking. 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 Sexual orientation: Straight/Heterosexual Gender identity: Female Cognitive needs: No Hearing needs: No Vision needs: Yes Female Reproductive History Menstrual Age of Menarche: 15 Duration of menses: 6-7 days Date of last menstrual period: 05/08/24 control method: permanent sterilization Permanent Sterilization: BTL Review of Systems Const All systems reviewed & are unremarkable except as noted in HPI and below Endo Reports no additional complaints Physical Exam Vital Signs: Last Vital Signs BP 118/70 05/20/24 13:25 Const General: cooperative, healthy appearing and no acute distress Psych Appearance: well kempt Attitude: cooperative Thought process: Normal thought process present Assessment & Plan Assessment & Plan (1) Counseling for initiation of control method: Code(s): Z. - Encounter for other general counseling and advice on contraception Plan Discussed: Reviewed NuvaRing use. control hormone use warnings: go to ER if and loss of vision, blindness, severe headache, chest pain or difficulty breathing, severe abdominal pain, or any pain or swelling in an extremity. Annual exam scheduled 01/20/2025. Rx sent in to [facility]. if any concerns. All of her questions and concerns were addressed to the best of my ability and shared decision making. She is agreeable to the plan of care. This note is constructed using voice recognition software. While every effort has been made to ensure accuracy, medical field representative errors may have been included. Medications: New etonogestrel-ethinyl estradiol 0.12-0.015 mg/24 hr (NuvaRing) 1 vag ring vaginal Q4W 3 weeks 1 ea 6RF Coding Level of Care Code Est Pt Level 3 (55907) Diagnoses Counseling for initiation of control method Z30.
[2024-05-20 13:25] VITALS: BP 118/70
== END 2024-05-20 13:45 | disposition home or self-care (01) ==
LOC: HO.HWS 13:15
PROVIDERS: PCP Internal Medicine; Visit Provider Advanced Practice Midwife
DX: Z30.09 Encounter for other general counseling and advice on contraception (principal)
CPT/HCPCS: 99213

== ENCOUNTER → 2024-05-20 13:15 | Outpatient (BNVA) | payer OTHER, SELFPAY | PROVIDERS: PCP Internal Medicine; Visit Provider Advanced Practice Midwife ==

== ENCOUNTER 2024-10-27 08:44 | Outpatient (AMB) | payer OTHER, SELFPAY ==
--- NOTE | 2024-10-27 09:10 | MHC.PC.OV ---
Vital Signs 10/27/24 09:19 Height 5 ft 5 in Weight 244 lb BMI 40.6 BP 136/80 Blood Pressure Location Lt brachial Position Sitting Respiration 15 Pulse 103 H Pulse Source Pulse Oximeter Temp 98.3 F Temp Source Oral Intake Visit Reasons: Annual PE Intake Note: Pt is here today for her PE: Last papsmear 12/30/23 Allergies No Known Allergies Allergy (Verified 10/27/24 09:30) Medication List - Last Reconciled 10/27/24 by Steph Zapata MD etonogestrel-ethinyl estradiol 0.12-0.015 mg/24 hr (NuvaRing) 1 vag ring vaginal Q4W 3 weeks fluticasone propionate 50 mcg/actuation 1 spray intranasal DAILY multivitamin 1 tab PO DAILY Tobacco use date assessed: 10/27/24 Dental Screening Dental Screen Date: 10/27/24 Did you have a dental visit in the last 12 months?: Yes Did you have a dental problem in the last 6 months where you did not have access to dental care?: Yes Was dental information given to patient?: Patient has dentist HPI Annual PE HPI Details 39-year-old lady with history of morbid obesity,p here today for her physical exam. She goes to [facility] for routine Pap and pelvic exam, with last Pap smear done a year ago with normal findings. Patient is currently on a NuvaRing control heavy menstrual bleed. Already had tubal ligation. She has been seeing a therapist to control her anxiety symptoms, which has been helping. 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 1. Little interest or pleasure in doing things: not at all 2. Feeling down, depressed, or hopeless: not at all 3. Trouble falling or staying asleep, or sleeping too much: not at all 4. Feeling tired or having little energy: not at all 5. Poor appetite or overeating: not at all 6. Feeling bad about yourself - or that you are a failure or have let yourself or your family down: not at all 7. Trouble concentrating on things, such as reading the newspaper or watching television: not at all 8. Moving or speaking so slowly that other people could have noticed. Or the opposite - being so fidgety or restless that you have been moving around a lot more than usual: not at all 9. Thoughts that you would be better off or of hurting yourself in some way: not at all Total score: 0 Depression Screening Interpretation: Negative Depression Screening Done: Yes 59154 - PHQ-9 Billing: Yes Source: Developed by Drs. Artem Dominguez, Kaley Peter, Zander Morgan and colleagues, with an educational kindra from [employer]. Thrive Questionnaire Date Thrive assessed: 10/27/24 I am a: Patient What is your living situation today?: I have a steady place to live Within the past 12 months, did the food you bought not last and you didn't have the money to get more?: Never true Within the past 12 months, did you worry whether your food would run out before you got money to buy more?: Never true Do you have trouble paying for medicines?: No Do you have trouble getting transportation to medical appointments?: No Do you have trouble paying your heating and electricity bill?: No Do you have trouble taking care of your child, family member or friend?: No Do you have trouble with day-to-day activities such as bathing, preparing meals, shopping, managing finances, etc.?: No Are you currently unemployed and looking for a job?: No Are you interested in more education?: No Please select the resources that you would like help with: None Currently or been in a relationship where the following occur: No concerns reported THRIVE Score: 0 AUDIT C Alcohol Use Questionnaire (AUDIT-C) 1. How often do you have a drink containing alcohol?: Monthly or less 2. How many drinks containing alcohol do you have on a typical day when you are drinking?: 1 or 2 3. How often do you have six or more drinks on one occasion?: Never Total Score: 1 KHRIS-7 AMB Questionnaire KHRIS-7 Date KHRIS - 7 assessed: 10/27/24 Feeling nervous, anxious, or on edge: 0 = Not at all Not being able to stop or control worryin = Not at all Worrying too much about different things: 0 = Not at all Trouble relaxin = Not at all Being so restless that it is hard to sit still: 0 = Not at all Becoming easily annoyed or irritable: 0 = Not at all Feeling afraid as if something awful might happen: 0 = Not at all Total KHRIS-7 score (0-4 normal; 5-9 mild; 10-14 moderate; 15-21 severe): 0 Source: Developed by Drs. Artem Dominguez, Kaley Peter, Zander Morgan and colleagues, with an educational kindra from [employer]. KHRIS-7 Assessment Billing KHRIS-7 Assessment Tool: KHRIS-7 Assessment 32308 Review of Systems Const Denies body aches, Denies fatigue, Denies fever(s), Denies headache(s) and Denies weakness Eyes Details: goes to [facility] eye care- has myopia Denies change in vision ENT Reports as per HPI, Denies dizziness, Denies otalgia, Denies headache(s), Denies nasal discharge and Denies sore throat Card Denies chest pain, Denies lightheadedness, Denies palpitations and Denies dyspnea Resp Denies chest congestion, Denies cough, Denies dyspnea and Denies wheezing GI Denies abdominal pain, Denies change in bowel habits and Denies heartburn Denies hematuria, Denies urinary frequency, Denies dysuria and Denies urinary urgency Musc Reports no additional complaints Skin/Breast Denies breast pain, Denies breast mass, Denies lesions and Denies rash Neuro Denies dizziness, Denies headache(s) and Denies weakness Psych Reports no additional complaints Endo Denies fatigue, Denies polydipsia, Denies polyuria and Denies palpitations Ruslan/Lymph Denies easy bleeding and Denies easy bruising Aller/Immun Reports seasonal rhinorrhea and Denies wheezing Physical exam (Primary Care) Vital Signs: Last Vital Signs Temp 98.3 F 10/27/24 09:19 Pulse 103 H 10/27/24 09:19 Resp 15 10/27/24 09:19 BP 136/80 10/27/24 09:19 BMI result Body Mass Index 40.6 BMI Assessment/Plan discussion: High BMI High, discussed plan: lifestyle, weight reduction, dietary and physical activity Tobacco/Smoking Status: Tobacco use Status Tobacco use date assessed 10/27/24 10/27/24 09:13 Patient Tobacco Use Status Never used Tobacco 10/27/24 09:11 e-Cigarette/Vaping Use Never Used 10/27/24 09:11 PHQ-9: PHQ-9 Score PHQ-9: Total score 0 10/27/24 09:11 Depression Screening Interpretation: Negative Thrive Assessment: Date of Thrive Assessment Date Thrive assessed 10/27/24 10/27/24 09:13 Currently or been in a relationship where the following occur: No concerns reported Advance Care Planning discussion: Completed/Scanned Date of discussion: 10/27/24 Who was present: Patient Forms completed: Health Care Proxy Time spent: 16-45 minutes Actual minutes spent: 2 Const General: comfortable, no acute distress and alert Nutritional Appearance: obese morbidly obese Orientation/consciousness: patient oriented x3 HENMT Head: Yes normocephalic Ears: external ears normal, TM's normal bilaterally and EAC's normal General nose exam: Normal external nose present Face and sinus: Yes face symmetric Mouth: moist mucous membranes Eyes General: appearance normal, both eyes and all related structures Conjunctivae: conjunctivae normal Sclerae: sclerae normal Pupils: Equal, round and reactive pupils present EOM: EOMs intact bilaterally Neck Neck: Yes full ROM, Yes no lymphadenopathy and Yes supple Thyroid: Thyroid normal Chest Chest palpation & inspection: normal inspection of the chest and normal palpation of entire chest wall Breast/axilla inspection: normal inspection of the breasts Breast/axilla palpation: normal palpation of the breasts Resp Effort & Inspection: normal respiratory effort and able to speak in complete sentences Auscultation: clear to auscultation bilaterally Cardio Rate: regular rate Rhythm: regular rhythm Heart sounds: S1 normal heart sound present and S2 normal heart sound present GI Inspection: Yes obesity Palpation (GI): Soft to palpation, nontender, no guarding and no masses Auscultation: normal bowel sounds General: Yes no CVA tenderness Back/Spine/Pelvis Back: no CVA tenderness Skin General skin exam: no rashes or lesions noted Rashes: no rashes Hair: normal Nails: normal Neuro General: patient oriented x3, gait normal, tone normal, Normal light touch and pain sensation and no focal motor deficits Cranial nerves: Yes Equal, round and reactive pupils present Cognition (Neuro): normal cognition Motor exam (neuro): 5/5 motor strength present throughout Extrem General: Yes full ROM, Yes no joint enlargement, Yes no clubbing, cyanosis or edema, Yes no calf tenderness and Yes normal gait Psych Appearance: grossly normal and well kempt Mental Status: mental status grossly normal Speech and movement: Normal speech and movement present Affect: normal affect Attitude: cooperative Thought process: Normal thought process present Thought content: Normal thought content present Coding Level of Care Code Est Pt Prev Care 18-39y(15166) Diagnoses Annual visit for general adult medical examination with abnormal findings Z00.01 Morbid obesity with BMI of 40.0-44.9, adult E66.01; Z68.41 Advanced directives, counseling/discussion Z71.89 Additional Codes Vital Signs *Quality* - Advance Care Planning discussion: Completed/Scanned ([id number]) Vital Signs *Quality* - Time spent: 16-45 minutes ([id number]) KHRIS-7 Assessment Billing - KHRIS-7 Assessment Tool: KHRIS-7 Assessment 54275 ([id number]) PHQ-9 - 02025 - PHQ-9 Billing: Yes ([id number]) Assessment & Plan Assessment & Plan (1) Annual visit for general adult medical examination with abnormal findings: Code(s): Z00.01 - Encounter for general adult medical examination with abnormal findings Plan: Will check appropriate labs. Continue regular dental visit every 6 months and regular eye exams, at least every 2 years. Take adequate calcium in diet and vitamin-D 3 at 1999 IU per cap once a day, in addition to weight-bearing exercises to help maintain good muscle tone and weight control. Instructed to do self-breast exam, and recommended to get yearly mammogram, starting at age 40. She goes to [facility] for routine Pap and pelvic exam and is prescribed NuvaRing for control and control of her having menses. Up-to-date with all her vaccines, gets yearly flu shots (2) Morbid obesity with BMI of 40.0-44.9, adult: Code(s): E66.01 - Morbid (severe) obesity due to excess calories; Z68.41 - Body mass index [BMI] 40.0-44.9, adult Category: Medical Plan: Patient has started taking up rollerblading again, for exercise. Advised adherence to healthy eating habits, cut back on lot of processed foods and simple carbs like pastries, donuts, eating more Mediterranean diet (3) Advanced directives, counseling/discussion: Code(s): Z71.89 - Other specified counseling Plan: Initiated the conversation about Advanced Directives. Advanced Directives help patients prepare for current and future decisions about their medical treatment and place of care. Discussed with patient that it is a process where a patients current condition and prognosis are reviewed, their wishes for information regarding their illness are elicited, and likely medical dilemmas are presented and options discussed. Healthcare proxy form completed today. The form can be amended as needed, reviewed yearly and make changes as needed Orders: Orders Basic Metabolic Panel Fasting Today E66.01 - Morbid (severe) obesity due to excess calories, N92.0 - Excessive and frequent menstruation with regular cycle, Z00.01 - Encounter for general adult medical examination with abnormal findings, Z13.1 - Encounter for screening for diabetes mellitus, Z13.220 - Encounter for screening for lipoid disorders, Z68.41 - Body mass index [BMI] 40.0-44.9, adult Lipid Panel Today E66.01 - Morbid (severe) obesity due to excess calories, N92.0 - Excessive and frequent menstruation with regular cycle, Z00.01 - Encounter for general adult medical examination with abnormal findings, Z13.1 - Encounter for screening for diabetes mellitus, Z13.220 - Encounter for screening for lipoid disorders, Z68.41 - Body mass index [BMI] 40.0-44.9, adult Vitamin D 25-OH Total Today E66.01 - Morbid (severe) obesity due to excess calories, N92.0 - Excessive and frequent menstruation with regular cycle, Z00.01 - Encounter for general adult medical examination with abnormal findings, Z13.1 - Encounter for screening for diabetes mellitus, Z13.220 - Encounter for screening for lipoid disorders, Z68.41 - Body mass index [BMI] 40.0-44.9, adult Aspartate Amino Transferase Today E66.01 - Morbid (severe) obesity due to excess calories, N92.0 - Excessive and frequent menstruation with regular cycle, Z00.01 - Encounter for general adult medical examination with abnormal findings, Z13.1 - Encounter for screening for diabetes mellitus, Z13.220 - Encounter for screening for lipoid disorders, Z68.41 - Body mass index [BMI] 40.0-44.9, adult Alanine Aminotransferase Today E66.01 - Morbid (severe) obesity due to excess calories, N92.0 - Excessive and frequent menstruation with regular cycle, Z00.01 - Encounter for general adult medical examination with abnormal findings, Z13.1 - Encounter for screening for diabetes mellitus, Z13.220 - Encounter for screening for lipoid disorders, Z68.41 - Body mass index [BMI] 40.0-44.9, adult Complete Blood Count Auto Diff Today E66.01 - Morbid (severe) obesity due to excess calories, N92.0 - Excessive and frequent menstruation with regular cycle, Z00.01 - Encounter for general adult medical examination with abnormal findings, Z13.1 - Encounter for screening for diabetes mellitus, Z13.220 - Encounter for screening for lipoid disorders, Z68.41 - Body mass index [BMI] 40.0-44.9, adult TSH reflex Free T4 Today E66.01 - Morbid (severe) obesity due to excess calories, N92.0 - Excessive and frequent menstruation with regular cycle, Z00.01 - Encounter for general adult medical examination with abnormal findings, Z13.1 - Encounter for screening for diabetes mellitus, Z13.220 - Encounter for screening for lipoid disorders, Z68.41 - Body mass index [BMI] 40.0-44.9, adult
[2024-10-27 09:19] VITALS: BP 136/80; PULSE 103; RESP 15; TEMP 36.8; BMI 40.6
== END 2024-10-27 09:50 | disposition home or self-care (01) ==
LOC: HO.HMCC 08:45
PROVIDERS: PCP Internal Medicine; Visit Provider Internal Medicine
DX: Z00.01 Encounter for general adult medical examination with abnormal findings (principal); E66.01 Morbid (severe) obesity due to excess calories; Z68.41 Body mass index [BMI] 40.0-44.9, adult; Z71.89 Other specified counseling

== ENCOUNTER → 2024-10-27 08:44 | Outpatient (BNVA) | payer OTHER, SELFPAY | PROVIDERS: PCP Internal Medicine; Visit Provider Internal Medicine | DX: Z00.01 Encounter for general adult medical examination with abnormal findings (principal); E66.01 Morbid (severe) obesity due to excess calories; Z68.41 Body mass index [BMI] 40.0-44.9, adult; Z71.89 Other specified counseling | CPT/HCPCS: 96127 ==

== ENCOUNTER 2024-11-04 07:06 | Outpatient (REF) | payer OTHER, SELFPAY ==
--- OUTSIDE RECORDS SUMMARY | 2024-11-04 07:07 | XMS_ITS ---
Author Name [facility] Organization Unknown Care Team Organization Name Specialty Phone Email Start Date End [facility]
[2024-11-04 10:12] LABS: MANUAL DIFF FLAG NO
[2024-11-04 10:17] LABS: Basophils Percent Auto 0.2 % (0-2); Eosinophils Absolute Auto 0.1 X10*3/uL (0.0-0.4); Eosinophils Percent Auto 0.6 % (0-4); Hematocrit 42.4 % (37.0-47.0); Hemoglobin 13.7 g/dl (12.0-16.0); Imm Gran Abs Auto 0.03 X10*3/uL (0.00-0.03); Imm Gran Pct Auto 0.3 % (0.0-0.4); Lymphocytes Absolute Auto 4.6 X10*3/uL (1.2-4.9); Lymphocytes Percent Auto 46.4 % (20-40); Mean Corpuscular HGB Conc 32.3 g/dl (31.0-35.0); Mean Corpuscular Hemoglobin 28.2 pg (27.0-33.0); Mean Corpuscular Volume 87.4 fL (80.0-98.0); Mean Platelet Volume 9.5 fL (9.4-12.3); Monocytes Absolute Auto 0.6 X10*3/uL (0.1-1.2); Monocytes Percent Auto 5.7 % (2-11); Neutrophils Absolute Auto 4.7 x10*3/uL (2.0-8.3); Neutrophils Percent Auto 46.8 % (45-73); Platelet Count 383 X10*3/uL (160-400); Red Blood Count 4.85 X10*6/uL (4.20-5.50); Red Cell Distribution Width 13.6 % (11.0-16.0)
[2024-11-04 10:46] LABS: Alanine Aminotransferase 27 U/L (0-31); Anion Gap 10 (12-20); Aspartate Amino Transferase 30 U/L (5-31); Blood Urea Nitrogen 7 mg/dL (9-16); Carbon Dioxide 24 mmol/L (22-29); Chloride 111 mmol/L (96-108); Cholesterol 158 mg/dL (<200); Estimated Glomerular Filt Rate > 60; Glucose Fasting 99 mg/dL (60-99); HDL Cholesterol 49 mg/dL (>40); LDL Cholesterol Calculated 75 mg/dL (<100); Potassium 4.3 mmol/L (3.3-5.1); Sodium 141 mmol/L (135-145); Triglycerides 172 mg/dL (<150)
[2024-11-04 11:12] LABS: TSH reflex Free T4 1.78 uIU/mL (0.32-4.0); Vitamin D 25-OH Total 32.4 ng/mL (>30)
== END 2024-11-04 07:07 | disposition home or self-care (01) ==
LOC: HO.HMGCLDS 07:06
PROVIDERS: PCP Internal Medicine; Visit Provider Internal Medicine
DX: Z00.01 Encounter for general adult medical examination with abnormal findings (principal); N92.0 Excessive and frequent menstruation with regular cycle; E66.01 Morbid (severe) obesity due to excess calories; Z68.41 Body mass index [BMI] 40.0-44.9, adult; Z13.220 Encounter for screening for lipoid disorders; Z13.1 Encounter for screening for diabetes mellitus
CPT/HCPCS: 36415; 80048; 80061; 82306; 84443; 84450; 84460; 85025

== ENCOUNTER 2025-03-29 08:27 | Outpatient (AMB) | payer OTHER, SELFPAY ==
--- NOTE | 2025-03-29 08:29 | A.OFFVIS_ITS ---
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 Flagsetter concerns: none. NuvaRing user. She denies any contraindications to control such as: migraines with aura, history of DVT or pulmonary emboli, high blood pressure, liver disease, thrombolic disorders, Lupus, +CONNIE, breast cancer, or smoking. Currently is not sexually active. She denies vaginal itching or irritation. STI screening offered; she declines. She tries to eat healthy and stays active with exercise. FH colon cancer. Last pap smear 2023, negative. [facility] Medical History Heavy menses Morbid obesity with BMI of 40.0-44.9, adult Surgical History H/O bilateral salpingectomy Hx of tubal ligation Hx of wisdom tooth extraction Family History Father Acute myocardial infarction, Onset Age: 45 HTN (hypertension) Mother No problems noted. 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 Sexual orientation: Straight/Heterosexual Gender identity: Female Cognitive needs: No Hearing needs: No Vision needs: Yes Female Reproductive History Menstrual Age of Menarche: 15 control method: vaginal ring and permanent sterilization Permanent Sterilization: BTL Total pregnancies: 2 Full term: 1 Number of Living Children: 1 Date of last pap smear: 12/29/23 (neg pap and hpv) Review of Systems Const All systems reviewed & are unremarkable except as noted in HPI and below Reports as per HPI Eyes Reports no additional complaints ENT Reports no additional complaints Card Reports no additional complaints Resp Reports no additional complaints GI Reports as per HPI and Reports no additional complaints Reports as per HPI Musc Reports no additional complaints Skin/Breast Reports as per HPI Neuro Reports no additional complaints Psych Reports no additional complaints Endo Reports no additional complaints Ruslan/Lymph Reports no additional complaints Aller/Immun Reports no additional complaints Physical Exam Vital Signs: Last Vital Signs BP 112/76 03/29/25 08:31 BMI result Body Mass Index 41.3 Const General: cooperative, healthy appearing, no acute distress, well developed and alert Orientation/consciousness: patient oriented x3 HEENT Head: Yes normal to inspection Eyes General: appearance normal, both eyes and all related structures Neck Neck: Yes normal visual inspection Thyroid: Thyroid normal Chest Chest palpation & inspection: normal inspection of the chest and other (no puckering, dimpling, peau de orange, retraction, discharge, masses) Breast/axilla inspection: normal inspection of the breasts Breast/axilla palpation: normal palpation of the breasts Resp Effort & Inspection: normal respiratory effort GI Inspection: Yes normal to inspection Palpation (GI): Soft to palpation Rectal Exam - Female: deferred General: Yes bladder normal to palpation External Female Exam: normal external appearance and normal appearance of the urethra Speculum Exam - Vagina: normal appearance of the vagina, normal palpation, normal vaginal discharge and other (NuvaRing present) Speculum Exam - Cervix: normal appearance of the cervix and normal palpation Bimanual exam- vagina & uterus: normal bimanual exam, normal palpation, uterine size normal, bladder normal to palpation, normal palpation and non-tender Bimanual Exam- Adnexa, other: no masses Skin General skin exam: no rashes or lesions noted Rashes: no rashes Neuro General: patient oriented x3 Cognition (Neuro): normal cognition Extrem General: Yes normal to inspection Psych Attitude: cooperative Thought process: Normal thought process present Assessment & Plan Assessment & Plan (1) Encounter for well woman exam with routine gynecological exam: Code(s): Z01.419 - Encounter for gynecological examination (general) (routine) without abnormal findings Category: Medical Plan Discussed: Current recommendations for pap smears per ASCCP guidelines. Breast awareness and periodic breast exams. Maintain a healthy lifestyle including a well balanced diet and routine exercise. Use condoms for STI and prevention. control hormone use warnings: go to ER if and loss of vision, blindness, severe headache, chest pain or difficulty breathing, severe abdominal pain, or any pain or swelling in an extremity. Patient verbalizes understanding and agrees to the plan of care. She was given opportunity to ask questions and all questions were answered to the best of my ability. 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 This note is constructed using voice recognition software. While every effort has been made to ensure accuracy, physician specialist errors may have been included. Medications: Changed From etonogestrel-ethinyl estradiol 0.12-0.015 mg/24 hr (NuvaRing) 1 vag ring vaginal Q4W 3 weeks 1 ea 1RF To etonogestrel-ethinyl estradiol 0.12-0.015 mg/24 hr (NuvaRing) insert a new ring every 3 weeks for continuous use 1 vag ring vaginal Q4W 4 ea 5RF 90 days Coding Level of Care Code Est Pt Prev Care 18-39y(48543) Diagnoses Encounter for well woman exam with routine gynecological exam Z01.419
[2025-03-29 08:31] VITALS: BP 112/76; BMI 41.3
--- OUTSIDE RECORDS SUMMARY | 2025-03-29 08:49 | XMS_ITS ---
Author Name [facility] Organization Unknown Care Team Organization Name Specialty Phone Email Start Date End [facility] te [facility] ([facility]
== END 2025-03-29 08:59 | disposition home or self-care (01) ==
PROVIDERS: PCP Internal Medicine; Visit Provider Advanced Practice Midwife
DX: Z01.419 Encounter for gynecological examination (general) (routine) without abnormal findings (principal)
CPT/HCPCS: 99395; 99459